=== PATIENT | female | born 1960 | race Two or more races ===

== ENCOUNTER 2022-11-13 13:58 | Emergency (ER) | payer OTHER ==
[~2022-11-13] VITALS: Ht 162.6 cm; Wt 83.9 kg
[2022-11-13] MEDS ORDERED: COZAAR25 MG PO (14:15)
[2022-11-13] MEDS ORDERED: XOPENEX0.63 MG/3 IH (18:03)
[2022-11-13] MEDS ORDERED: ZITHROMAX500 MG PO (18:03)
[2022-11-13] MEDS ORDERED: TUSNEL LIQUID178 ML PO (18:03)
[2022-11-13] MEDS ORDERED: MEDROLPACK PO (18:03)
== END 2022-11-13 18:17 | disposition home or self-care (01) ==
LOC: ER 13:58
DX: U07.1 COVID-19 (principal)